=== PATIENT | female | born 1980 | race Caucasian/White ===

== ENCOUNTER → 2016-09-29 | Outpatient (CLI) | payer BC, OTHER ==
[~2016-09-29] MED LIST: ASPI1TAB30 PO; BUPR-86 PO
[2016-09-29 09:01] LABS: HEMOGLOBIN 14.7 g/dL (11.7-16.4)
== END | disposition home or self-care (01) ==
LOC: STAR 08:14
DX: N92.0 Excessive and frequent menstruation with regular cycle (principal)
CPT/HCPCS: 36415; 81003; 84703; 85025